=== PATIENT | female | born 1985 | race Caucasian/White ===

== ENCOUNTER 2022-01-24 13:10 | Emergency (ER) | payer BC ==
[~2022-01-24] VITALS: Ht 160 cm; Wt 77.1 kg
[2022-01-24] MEDS ORDERED: HYDROMORPHONE 1 MG/1 ML DISP.SYRIN IV ONE (13:45)
[2022-01-24] MEDS ORDERED: ONDANSETRON 4 MG/2 ML VIAL IV ONE (13:45)
--- NOTE | 2022-01-24 13:45 | NUR ---
recieved pt in bed, irritable, moaning with intense pain (scale of 10/10) on the RL flank radiating to the perineal area that started an hour ago. Pt verbalized that neighbor brought her to ER.
[2022-01-24] MEDS ORDERED: HYDROMORPHONE 1 MG/1 ML DISP.SYRIN ONE (13:46)
[2022-01-24] MEDS ORDERED: ONDANSETRON 4 MG/2 ML VIAL ONE (13:47)
--- NOTE | 2022-01-24 13:48 | NUR ---
Female cryptographic vulnerability analyst accompanied female patient during abdominal assessment of Dr Jaime
--- NOTE | 2022-01-24 13:50 | NUR ---
pt complained of nausea w/o vomiting. denies headache, SOB, chest pain
--- NOTE | 2022-01-24 14:00 | NUR ---
pt verbalized decrease in pain from a scale of 10/10 to 4/10
[2022-01-24 14:01] LABS: HEMATOCRIT 39.8 % (31.2-41.9); MEAN CORPUSCULAR HEMOGLOBIN 32.9 uug (24.7-32.8); MEAN CORPUSCULAR VOLUME 94.1 fL (75.5-95.3); PLATELET COUNT (AUTO) 335 K/uL (179-408)
--- NOTE | 2022-01-24 14:02 | NUR ---
Eneida jordan in [facility] - 01/24/22 at 1410 by CHRIS Pt is pain free at this time
[2022-01-24 14:05] LABS: CARBON DIOXIDE 19 mmol/L (21-32); CHLORIDE 104 mmol/L (98-107); CREATININE 0.7 mg/dL (0.6-1.3); GLUCOSE 128 mg/dL (74-106); POTASSIUM 3.3 mmol/L (3.5-5.1); UREA NITROGEN, BLOOD 13 mg/dL (7-18)
[2022-01-24 14:16] LABS: ALANINE AMINOTRANSFERASE 26 U/L (14-59); ALKALINE PHOSPHATASE 50 U/L (50-136); ASPARTATE AMINOTRANSFERASE 13 U/L (15-37); BILIRUBIN,DIRECT 0.1 mg/dL (0.0-0.2); BILIRUBIN,TOTAL 0.4 mg/dL (0.2-1.0); LIPASE 73 U/L (73-393)
[2022-01-24 14:26] LABS: *BILIRUBIN,URIN 1+ (NEGATIVE); *BLOOD, URINE 3+ (NEGATIVE); *COLOR,URINE YELLOW (YELLOW); *KETONES,URINE 4+ (NEGATIVE); *UROBILINOGEN,URINE 0.2 E.U./dl (NORMAL); LEUKOCYTE ESTERASE ,URINE NEGATIVE (NEGATIVE); NITRITE, URINE NEGATIVE (NEGATIVE); PH,URINE 5.5 (5.0-8.0); UGLUCOSE NEGATIVE (NEGATIVE)
--- NOTE | 2022-01-24 15:00 | NUR ---
made an entry to return medication that should have been "wasted"
[2022-01-24] MEDS ORDERED: METOCLOPRAMIDE HCL 10 MG/2 ML VIAL IV ONE (15:15)
[2022-01-24] MEDS ORDERED: KETOROLAC TROMETHAMINE 15 MG INJ IVP ONE (15:15)
[2022-01-24] MEDS ORDERED: KETOROLAC TROMETHAMINE 15 MG INJ ONE (15:22)
[2022-01-24] MEDS ORDERED: METOCLOPRAMIDE HCL 10 MG/2 ML VIAL ONE (15:25)
--- NOTE | 2022-01-24 15:48 | NUR ---
Patient discharged to home in stable condition. Written and verbal after care instructions given. Patient verbalizes understanding of instructions. Stressed follow up or return to ER for worsening s/s.
[2022-01-24 16:03] VITALS: BP 114/80
[2022-01-24 17:39] LABS: *CLARITY,URINE HAZY (CLEAR); BACTERIA,URINE FEW /HPF (NONE SEEN); SQUAMOUS EPITHELIAL CELL,UR FEW /HPF (NONE SEEN); URINE AMORPHOUS URATE MODERATE /HPF; WBC,URINE 0-3 /HPF (0-3)
== END 2022-01-24 16:04 | disposition home or self-care (01) ==
LOC: ER 13:10
DX: N23 Unspecified renal colic (principal); D25.9 Leiomyoma of uterus, unspecified
CPT/HCPCS: 36415; 74176; 80048; 80076; 81001; 83690; 84702; 85025; 87086; 96374; 99284; J1170; J1885; J2405; A4663; J2765